=== PATIENT | male | born 1990 | race Caucasian/White ===

== ENCOUNTER 2019-05-23 14:26 | Emergency (ER) | payer MEDICARE, MEDICAID ==
[~2019-05-23] VITALS: Ht 182.9 cm; Wt 88.2 kg
[~2019-05-23 14:26] MED LIST: DSS100 PO; LITH300C3 PO; OMEP20 PO; RISP3TAB44 PO
[2019-05-23 15:06] LABS: GLUCOSE,POINT OF CARE 103 MG/DL (70-110)
[2019-05-23] MEDS ORDERED: IBUPROFEN 600 MG TABLET PO ONE (15:30)
[2019-05-23] MEDS ORDERED: DEXAMETHASONE SOD PHOS 4 MG/ML 5 ML VIAL IM ONE (15:30)
[2019-05-23] MEDS ORDERED: HYDROCODONE/ACETAMINOPHEN 5-325 MG TABLET PO ONE (15:45)
[2019-05-23 15:48] VITALS: BP 130/79
== END 2019-05-23 15:57 | disposition home or self-care (01) ==
LOC: EMS 14:28
DX: L30.9 Dermatitis, unspecified (principal); F20.9 Schizophrenia, unspecified; F17.210 Nicotine dependence, cigarettes, uncomplicated; Z88.0 Allergy status to penicillin
CPT/HCPCS: 82962; 96372; 99283; J1100

== ENCOUNTER 2024-03-23 07:59 | Emergency (ER) | payer MEDICARE, MEDICAID ==
[~2024-03-23] VITALS: Ht 185.4 cm; Wt 80.0 kg
[2024-03-23 08:06] VITALS: BP 154/96; PULSE 82; RESP 18; TEMP 97.8; O2SAT 98
[2024-03-23] MEDS: MAG HYDROX/ALUMINUM HYD/SIMETH ES 30 ML SUSPENSION UDCUP PO ONE (08:28)
[2024-03-23] MEDS: LORazepam 1 MG TABLET PO ONE (08:28)
[2024-03-23 09:01] LABS: TROPONIN I-HIGH SENSITIVITY 23 ng/L (<76)
== END 2024-03-23 10:03 | disposition home or self-care (01) ==
LOC: EMS 07:59
DX: K21.9 Gastro-esophageal reflux disease without esophagitis (principal); R07.9 Chest pain, unspecified; E11.9 Type 2 diabetes mellitus without complications; F20.0 Paranoid schizophrenia; F17.210 Nicotine dependence, cigarettes, uncomplicated; Z88.0 Allergy status to penicillin; Z79.899 Other long term (current) drug therapy
CPT/HCPCS: 71045; 84484; 93005; 99285; 36415-L1; 36415-TC

== ENCOUNTER 2024-12-02 07:49 | Inpatient (IN) | payer MEDICAID, MEDICARE, OTHER ==
[~2024-12-02] VITALS: Ht 185.4 cm; Wt 84.1 kg
[~2024-12-02 07:49] MED LIST changes: +OMEP-148 PO; -OMEP20 PO
[2024-12-02 08:25] LABS: PLATELET COUNT (AUTO) 200 K/uL (150-450); RED BLOOD CELL COUNT(AUTO) 4.24 MIL/uL (4.50-5.90); RED CELL DISTRIBUTION WIDTH 13.3 % (11.5-14.5); WHITE BLOOD COUNT (AUTO) 6.2 K/uL (4.5-11.0)
[2024-12-02 08:31] LABS: CALCIUM, TOTAL 8.4 mg/dL (8.8-10.5); CREATININE 0.82 mg/dL (0.60-1.30); GLOMERULAR FILTR. RATE CALC > 60 mL/min (>60); GLUCOSE,RANDOM 96 mg/dL (70-110); SODIUM SERUM 138 mmol/L (136-145); UREA NITROGEN, BLOOD 18 mg/dL (7-18)
[2024-12-02 08:38] LABS: ASPARTATE AMINOTRANSFERASE 31 U/L (15-37); TOTAL PROTEIN, SERUM 7.3 g/dL (6.4-8.2)
[2024-12-02 09:29] LABS: APPEARANCE,URINE CLEAR (CLEAR); GLUCOSE, URINE (UA) NEGATIVE (NEGATIVE); LEUKOCYTE ESTERASE ,URINE NEGATIVE (NEGATIVE); NITRATE,URINE NEGATIVE (NEGATIVE); OCCULT BLOOD,URINE NEGATIVE (NEGATIVE); PH,URINE DRUG SCREEN 5.5 (5.0-8.0); SPECIFIC GRAVITIY, URINE 1.029 (1.003-1.030)
[2024-12-02 09:36] LABS: ALCOHOL, URINE DRUG SCREEN NEGATIVE (NEGATIVE); AMPHET/METH SCREEN,URINE NEGATIVE (NEGATIVE); BARBITURATE SCREEN, URINE NEGATIVE (NEGATIVE); CANNABINOID SCREEN,URINE NEGATIVE (NEGATIVE); COCAINE SCREEN,URINE NEGATIVE (NEGATIVE); METHADONE SCREEN, URINE NEGATIVE (NEGATIVE)
[2024-12-02] MEDS ORDERED: TAMS0.4C94 PO (14:17)
[2024-12-02] MEDS ORDERED: BENZ-247 PO (14:17)
[2024-12-02] MEDS ORDERED: BUPR-50 PO (14:17)
[2024-12-02] MEDS ORDERED: [UNRECOGNIZED DRUG - CODE] PO (14:17)
[2024-12-02] MEDS ORDERED: BUPR1FIL3 SL (14:17)
[2024-12-02] MEDS ORDERED: HYDR-4808 PO (14:17)
[2024-12-02] MEDS ORDERED: MIRT-89 PO (14:17)
[2024-12-02] MEDS ORDERED: GABA-1181 PO (14:17)
[2024-12-02 17:32] VITALS: BP 124/80; PULSE 75; RESP 19; TEMP 98.2; O2SAT 98
[2024-12-02] MEDS ORDERED: BISACODYL 10 MG RECTAL RECTAL SUPPOSITORY PR PRN (18:00)
[2024-12-02] MEDS ORDERED: ONDANSETRON HCL 4 MG/2 ML VIAL IVP PRN (18:00)
[2024-12-02] MEDS ORDERED: IPRATROPIUM BROMIDE 0.5 MG/2.5 ML NEB SOLUTION NEB PRN (18:00)
[2024-12-02] MEDS ORDERED: ALBUTEROL SULFATE 2.5 MG/0.5 ML NEB SOLUTION NEB PRN (18:00)
[2024-12-02 20:15] VITALS: BP 128/82; PULSE 72; RESP 18; TEMP 97.9; O2SAT 98
[2024-12-02] MEDS: ZOLPIDEM TARTRATE 5 MG TABLET PO PRN (20:48)
[2024-12-02] MEDS: ACETAMINOPHEN 325 MG TABLET PO PRN (20:48)
[2024-12-02] MEDS: MAGNESIUM HYDROXIDE SUSPENSION 30 ML UDCUP PO PRN (21:51)
[2024-12-02 22:46] LABS: GLUCOMETER DEV NAME(LOC) 5S.2D; GLUCOSE,POINT OF CARE 146 MG/DL (70-110)
[2024-12-03] MEDS ORDERED: HEPARIN SODIUM,PORCINE 5,000 UNITS/ML VIAL SQ SCH
[2024-12-03] MEDS ORDERED: PANTOPRAZOLE SODIUM 40 MG DR TABLET PO SCH (09:00)
== END 2024-12-03 01:05 | disposition left against medical advice (07) | DRG 918 ==
LOC: EMS 08:00 → EDH 10:11 → 5S 16:10
PROVIDERS: ADMIT Hospitalist; ATTEND Hospitalist
DX: T50.901A Poisoning by unspecified drugs, medicaments and biological substances, accidental (unintentional), initial encounter (principal); F20.0 Paranoid schizophrenia; E11.9 Type 2 diabetes mellitus without complications; Z53.21 Procedure and treatment not carried out due to patient leaving prior to being seen by health care provider; N40.0 Benign prostatic hyperplasia without lower urinary tract symptoms; F17.210 Nicotine dependence, cigarettes, uncomplicated; Z88.0 Allergy status to penicillin; Z79.899 Other long term (current) drug therapy; Y92.89 Other specified places as the place of occurrence of the external cause; Z82.49 Family history of ischemic heart disease and other diseases of the circulatory system; Z82.5 Family history of asthma and other chronic lower respiratory diseases
CPT/HCPCS: 80048; 80076; 80307; 81003; 82962; 85025; 93005; 99285; G0480; G0481; J1644